=== PATIENT | female | born 1965 | race Caucasian/White ===

== ENCOUNTER 2019-12-14 15:36 | Inpatient (IN) | payer MEDICAID ==
[~2019-12-14] VITALS: Ht 149.9 cm; Wt 74.4 kg
[2019-12-14 15:40] VITALS: Ht 149.9 cm; Wt 74.4 kg
[2019-12-14 17:14] LABS: CALCIUM 8.2 mg/dL (8.5-10.1); CARBON DIOXIDE 29.4 mmol/L (21-32); CHLORIDE SERUM 101 mmol/L (98-107); CREATININE SERUM 0.7 mg/dL (0.6-1.0); GFR1 > 60 mL/min; GLUCOSE SERUM 388 mg/dL (74-106); POTASSIUM SERUM 3.6 mmol/L (3.5-5.1); SODIUM SERUM 138 mmol/L (136-145)
[2019-12-14 17:15] LABS: BASOPHIL % 0.4 % (0-2); PLATELET COUNT 194 x10^3mcL (130-400); RED CELL DISTRIBUTION WIDTH 13.3 % (11.5-14.5)
[2019-12-14 17:20] LABS: ALKALINE PHOSPHATASE 158 U/L (46-116); ALT/SGPT 64 U/L (14-59); AST/SGOT 34 U/L (15-37); BILIRUBIN TOTAL 0.4 mg/dL (0.20-1.00); CHOLESTEROL 184 mg/dL (<200); MAGNESIUM 2.1 mg/dL (1.8-2.4); TOTAL PROTEIN, SERUM 7.1 g/dL (6.4-8.2)
[2019-12-14 17:21] LABS: ALBUMIN 3.3 g/dL (3.4-5.0)
[2019-12-14 18:47] LABS: CHOLESTEROL/HDL RATIO 4.1
[2019-12-14] MEDS ORDERED: ADALAT CC30 MG PO (20:05)
[2019-12-14] MEDS ORDERED: AMLODIPINE (20:05)
[2019-12-14] MEDS ORDERED: LOSARTAN (20:06)
[2019-12-14 22:01] VITALS: BP 208/98
[2019-12-15] VITALS (7 sets, daily range): BP systolic 113–205; BP diastolic 73–95
[2019-12-15 07:03] LABS: BASOPHIL % 0.2 % (0-2); PLATELET COUNT 183 x10^3mcL (130-400); RED CELL DISTRIBUTION WIDTH 13.1 % (11.5-14.5)
[2019-12-15 07:13] LABS: CALCIUM 8.4 mg/dL (8.5-10.1); CARBON DIOXIDE 28.3 mmol/L (21-32); CHLORIDE SERUM 103 mmol/L (98-107); CREATININE SERUM 0.6 mg/dL (0.6-1.0); GFR1 > 60 mL/min; GLUCOSE SERUM 249 mg/dL (74-106); SODIUM SERUM 139 mmol/L (136-145)
[2019-12-16 05:29] VITALS: BP 130/73
[2019-12-16 07:06] LABS: BASOPHIL % 0.4 % (0-2); PLATELET COUNT 214 x10^3mcL (130-400); RED CELL DISTRIBUTION WIDTH 13.9 % (11.5-14.5)
[2019-12-16 07:17] LABS: CALCIUM 9.1 mg/dL (8.5-10.1); CARBON DIOXIDE 27.9 mmol/L (21-32); CHLORIDE SERUM 101 mmol/L (98-107); CREATININE SERUM 0.6 mg/dL (0.6-1.0); GFR1 > 60 mL/min; GLUCOSE SERUM 198 mg/dL (74-106); MAGNESIUM 1.9 mg/dL (1.8-2.4); PHOSPHOROUS 4.2 mg/dL (2.5-4.9); SODIUM SERUM 138 mmol/L (136-145)
[2019-12-16 08:38] VITALS: BP 177/83
[2019-12-16] MEDS ORDERED: ASPIRIN FOR CHI81 M1 PO (09:49)
[2019-12-16] MEDS ORDERED: LIPITOR40 MG PO ×2 (09:51→13:52)
[2019-12-16] MEDS ORDERED: ZESTRIL5 MG PO (09:55)
[2019-12-16] MEDS ORDERED: LANTI SQ (09:58)
[2019-12-16 11:09] LABS: CALCIUM 9.2 mg/dL (8.5-10.1); CARBON DIOXIDE 25.6 mmol/L (21-32); CHLORIDE SERUM 100 mmol/L (98-107); CREATININE SERUM 0.7 mg/dL (0.6-1.0); GFR1 > 60 mL/min; GLUCOSE SERUM 229 mg/dL (74-106); POTASSIUM SERUM 3.1 mmol/L (3.5-5.1); SODIUM SERUM 136 mmol/L (136-145)
[2019-12-16 12:45] VITALS: BP 176/83
[2019-12-16 13:35] VITALS: BP 191/81
[2019-12-16] MEDS ORDERED: ZESTRIL20 MG PO (14:52)
[2019-12-16 16:01] VITALS: BP 140/73
[2019-12-16 16:26] VITALS: BP 140/73
== END 2019-12-16 17:06 | disposition home or self-care (01) | DRG 45 ==
LOC: ED 15:36 → DU 17:46
PROVIDERS: Specialist; ADMIT Internal Medicine; ATTEND Internal Medicine
DX: I63.89 Other cerebral infarction (principal); D75.1 Secondary polycythemia; G81.94 Hemiplegia, unspecified affecting left nondominant side; E11.9 Type 2 diabetes mellitus without complications; E66.9 Obesity, unspecified; I10 Essential (primary) hypertension; R29.703 NIHSS score 3; Z68.28 Body mass index [BMI] 28.0-28.9, adult; Z79.899 Other long term (current) drug therapy; E78.00 Pure hypercholesterolemia, unspecified
CPT/HCPCS: 82962; 92526-GN; 92610-GN; G0378; G0480; J0360; J1815; J2405; J3490; J7030; Q0092; Q9967

== ENCOUNTER 2019-12-18 14:24 | Emergency (ER) | payer MEDICAID ==
[~2019-12-18] VITALS: Ht 160 cm; Wt 72.6 kg
[~2019-12-18 14:24] MED LIST: ADALAT CC30 MG PO; AMLODIPINE; ASPIRIN FOR CHI81 M1 PO; LANTI SQ; LIPITOR40 MG PO; LOSARTAN; ZESTRIL20 MG PO; ZESTRIL5 MG PO
[2019-12-18 14:33] VITALS: Ht 160 cm; Wt 72.6 kg
[2019-12-18 15:33] LABS: BASOPHIL % 0.6 % (0-2); PLATELET COUNT 213 x10^3mcL (130-400)
[2019-12-18 15:37] LABS: CALCIUM 9.2 mg/dL (8.5-10.1); CARBON DIOXIDE 30.2 mmol/L (21-32); CHLORIDE SERUM 98 mmol/L (98-107); CREATININE SERUM 0.7 mg/dL (0.6-1.0); GFR1 > 60 mL/min; GLUCOSE SERUM 324 mg/dL (74-106); POTASSIUM SERUM 3.5 mmol/L (3.5-5.1); SODIUM SERUM 134 mmol/L (136-145)
[2019-12-18 15:41] LABS: ALBUMIN 3.8 g/dL (3.4-5.0); ALKALINE PHOSPHATASE 156 U/L (46-116); ALT/SGPT 56 U/L (14-59); AST/SGOT 23 U/L (15-37); BILIRUBIN TOTAL 0.7 mg/dL (0.20-1.00)
[2019-12-18 15:44] LABS: TOTAL PROTEIN, SERUM 8.3 g/dL (6.4-8.2)
[2019-12-18 17:27] VITALS: BP 182/98
== END 2019-12-18 17:27 | disposition short-term general hospital (02) ==
LOC: ED 14:24
PROVIDERS: Emergency Medicine
DX: I63.9 Cerebral infarction, unspecified (principal); I10 Essential (primary) hypertension
CPT/HCPCS: 82962; J3010; Q0092

== ENCOUNTER 2020-01-29 14:07 | Emergency (ER) | payer SELFPAY ==
[~2020-01-29] VITALS: Ht 162.6 cm; Wt 81.2 kg
[2020-01-29 14:14] VITALS: Ht 162.6 cm; Wt 81.2 kg
[2020-01-29 18:55] VITALS: BP 112/64
== END 2020-01-29 18:55 | disposition home or self-care (01) ==
LOC: ED 14:07
DX: S70.02XA Contusion of left hip, initial encounter (principal); I10 Essential (primary) hypertension; E11.9 Type 2 diabetes mellitus without complications; Z86.73 Personal history of transient ischemic attack (TIA), and cerebral infarction without residual deficits; W08.XXXA Fall from other furniture, initial encounter; Y93.89 Activity, other specified; Y92.89 Other specified places as the place of occurrence of the external cause; Y99.8 Other external cause status